=== PATIENT | male | born 1955 | race Caucasian/White ===

== ENCOUNTER 2017-02-07 18:46 | Emergency (ER) | payer OTHER, BC ==
[~2017-02-07] VITALS: Ht 170.2 cm; Wt 104.5 kg
[~2017-02-07 18:46] MED LIST: ASCA500 PO; ASPI81TA21 PO; LISI10TA PO; MULTTAB58 PO; PRLSR20 PO
[2017-02-07 18:49] VITALS: TEMP 36.7; Ht 170.2 cm; Wt 104.5 kg
--- NOTE | 2017-02-07 19:39 | DIAGNOSTIC IMAGING REPORT ---
ULTRASOUND RIGHT VENOUS DOPP LOWER EXT UNILAT CLINICAL HISTORY: Right leg pain COMPARISON STUDY: No previous studies for comparison. FINDINGS: Real-time and color flow Doppler imaging were performed. Flow was seen within the femoral, popliteal and calf veins with no intraluminal thrombus demonstrated. The saphenous vein is patent. No soft tissue hematoma was visualized at the point of maximal tenderness. IMPRESSION: No evidence of right lower extremity DVT Electronically signed by: Castro Colunga M.D. 02/07/2017 7:38 PM Dictated Date/Time: 02/07/2017 7:37 PM
--- NOTE | 2017-02-07 19:45 | DIAGNOSTIC IMAGING REPORT ---
ULTRASOUND OF THE RIGHT THIGH CLINICAL HISTORY: Right leg pain. Possible hematoma. COMPARISON STUDY: No previous studies for comparison. FINDINGS: Ultrasonographic evaluation of the posterior distal thigh was performed. No hematoma is visualized. IMPRESSION: No ultrasonographic evidence of an intramuscular hematoma. Electronically signed by: Castro Colunga M.D. 02/07/2017 7:43 PM Dictated Date/Time: 02/07/2017 7:43 PM
[2017-02-07 19:59] VITALS: BP 179/100; PULSE 61; O2SAT 98
--- NOTE | 2017-02-07 20:16 | EMERGENCY ROOM VISIT NOTE ---
History First contact with patient: 18:57 Chief Complaint: LEG PAIN,LEG INJURY Stated Complaint: TWISTED R LEG,PAIN,CANT WALK History of Present Illness The patient is a 61 year old male who presents to the Emergency Room with complaints of persistent right posterior leg pain after suffering a work- related injury 2 weeks ago while getting out of his truck. The patient is currently under the management of [facility], and saw them again yesterday with these complaints. He reports that they got x-rays of the knee and lower leg that were normal. He was encouraged to limit weightbearing until symptoms improve. The patient reports that the pain in his leg has been intermittent. He now reports that the pain today is severe, and seems to be focused in the back of his leg, knee and thigh region. He has not noticed any back pain, paresthesias or numbness of the right lower extremity. He has not noticed any swelling of the knee or leg. He rates his discomfort a 10 out of 10. Review of Systems 10 system review was performed and was negative except for pertinent positives and negatives as indicated in history of present illness Past Medical/Surgical History Medical Problems: (1) Diverticulosis Colon (W/O Ment Of Hemorrhage) (2) Esophageal Reflux (3) Hypertension Nos (4) Impetigo Surgical Problems: (1) History of appendectomy Family History FH: cancer FH: diabetes mellitus FH: heart disease FH: hypertension Social History Smoking Status: Never Smoker Alcohol Use: none Marital Status: Occupation Status: employed Current/Historical Medications Scheduled Ascorbic Acid (Vitamin C), 1,000 MG PO DAILY Aspirin Enteric Coated (Ecotrin Or Generic), 81 MG PO DAILY Lisinopril (Prinivil), 10 MG PO DAILY Multiple Vitamin (Multivitamin), 1 TAB PO DAILY Omeprazole (Prilosec), 20 MG PO DAILY Physical Exam Vital Signs Date Time Temp Pulse Resp B/P (MAP) Pulse Ox O2 Delivery O2 Flow Rate FiO2 02/07/17 19:59 61 16 179/100 98 02/07/17 18:49 36.7 92 18 99 Room Air Physical Exam CONSTITUTIONAL: Healthy and well nourished. Alert and oriented X 3 with positive affect. Patient does not appear in any significant distress on exam. HEENT: Normocephalic, atraumatic. Pupils equal, round and reactive. NECK: Full active range of motion without discomfort. RESPIRATORY: Clear to auscultation bilaterally with no wheezing, crackles, rhonchi or stridor. CARDIOVASCULAR: Regular rate and rhythm with no murmurs, rubs or gallops. MUSCULOSKELETAL: Examination of the right lower extremity does not show any obvious edema or ecchymosis. He is tender through the upper gastrocs anemias, hamstrings and distal biceps region. No obvious popliteal masses. He has no tenderness to palpation through the medial or lateral joint line. Flexion and extension does not cause any significant discomfort. Ligamentous exam is normal. Pedal pulses are intact. INTEGUMENTARY: No rash or other significant dermatologic conditions noted. NEUROLOGIC: No focal neurologic deficits noted. Right lower extremity is sensory intact. Medical Decision & Procedures ER Provider Diagnostic Interpretation: Venous ultrasound and nonvascular ultrasound of the right lower extremity is negative for deep vein thrombosis or other hematoma formation. Radiologist reports were reviewed. ED Course Patient history and physical exam were performed. Nurse's notes were reviewed. Vital signs were reviewed, with initial vital signs not including a blood pressure. The patient refused any analgesics. Venous and nonvascular ultrasound of the right lower extremity was negative for deep vein thrombosis or hematoma formation. A knee immobilizer and crutches were dispensed. The patient was encouraged to alternate ice and heat to the back of the leg. Ibuprofen and Tylenol as needed for pain. The patient refused any prescription analgesics. He was instructed to follow-up with [facility] for further management of his work-related injury. He is welcome to return to the emergency department as needed for any other concerning symptoms. The patient was happy with plan of care, voiced understanding of all discharge instructions , and rated his pain a 4 out of 10 at the conclusion of my exam. It is noted that the patient's blood pressure was elevated at 179/100 prior to discharge. He was instructed to follow-up with his PCP for blood pressure recheck. Medical Decision Medication Reconcilliation Current Medication List: was personally reviewed by me Blood Pressure Screening Patient's blood pressure: Elevated blood pressure Blood pressure disposition: Referred to PCP Impression Primary Impression: Posterior right knee pain Additional Impressions: Elevated blood pressure reading Work related injury Departure Information Referrals Mercy Delong M.D. (MEDICAL) (PCP) Patient Instructions My [facility] Problem Qualifiers
== END 2017-02-07 20:05 | disposition home or self-care (01) ==
LOC: C.EDB 18:47 → C.EDD 20:05
DX: M25.561 Pain in right knee (principal); V87.8XXA Person injured in other specified noncollision transport accidents involving motor vehicle (traffic), initial encounter; Y99.0 Civilian activity done for income or pay; I10 Essential (primary) hypertension; K57.30 Diverticulosis of large intestine without perforation or abscess without bleeding; K21.9 Gastro-esophageal reflux disease without esophagitis; L01.00 Impetigo, unspecified; Z79.82 Long term (current) use of aspirin; Z83.3 Family history of diabetes mellitus; Z82.49 Family history of ischemic heart disease and other diseases of the circulatory system

== ENCOUNTER 2017-07-26 23:21 | Emergency (ER) | payer BC, OTHER ==
[~2017-07-26] VITALS: Ht 170.2 cm; Wt 111.6 kg
[2017-07-26 23:29] VITALS: Ht 170.2 cm; Wt 111.6 kg
[2017-07-26] MEDS ORDERED: ONDANSETRON INJ 2 MG/ML 2 ML VIAL IV STA (23:32)
[2017-07-26] MEDS ORDERED: MoRPHine SULFATE 4 MG/ML 1 ML CARP\\VIAL IV STA (23:32)
[2017-07-26 23:45] VITALS: O2SAT 98
[2017-07-26 23:58] LABS: BASO % 0.3 %; BASO ABS # 0.04 K/uL (0-0.2); EOS ABS # 0.13 K/uL (0-0.5); HEMATOCRIT 48.8 % (42-52); HEMOGLOBIN 17.2 g/dL (14.0-18.0); IG# 0.05 K/uL (0.00-0.02); LYMPH % 17.7 %; LYMPH ABS # 2.25 K/uL (1.2-3.4); MEAN CORPUSCULAR HEMOGLOBIN 31.7 pg (25-34); MEAN CORPUSCULAR HGB CONC 35.2 g/dl (32-36); MEAN PLATELET VOLUME 11.7 fL (7.4-10.4); MONO % 9.5 %; NEUT % 71.1 %; NEUT ABS # 9.02 K/uL (1.4-6.5); PLATELET COUNT 133 K/uL (130-400); RED CELL DISTRIBUTION WIDTH SD 45.6 fL (36.4-46.3); WHITE BLOOD COUNT 12.69 K/uL (4.8-10.8)
[2017-07-27] MEDS ORDERED: KETOROLAC TROMETHAMINE 30 MG/ML VIAL IV STA (00:08)
[2017-07-27 00:20] LABS: ALBUMIN 3.6 gm/dl (3.4-5.0); CALCIUM 8.6 mg/dl (8.5-10.1); CREATININE 1.32 mg/dl (0.60-1.40); POTASSIUM 3.7 mmol/L (3.5-5.1)
[2017-07-27 00:23] LABS: TOTAL PROTEIN 7.1 gm/dl (6.4-8.2)
[2017-07-27] MEDS ORDERED: LISI-725 PO (01:19)
[2017-07-27] MEDS ORDERED: MoRPHine SULFATE 4 MG/ML 1 ML CARP\\VIAL IV STA (01:28)
[2017-07-27] MEDS ORDERED: ONDANSETRON HOME PACK 4MG OD TAB PO ONE (01:45)
[2017-07-27] MEDS ORDERED: OXYCODONE IR HOME PACK PO ONE (01:45)
--- NOTE | 2017-07-27 02:45 | EMERGENCY ROOM VISIT NOTE ---
History First contact with patient: 23:31 Chief Complaint: ABDOMINAL PAIN Stated Complaint: SEVERE ABDOMINAL PAIN Nursing Triage Summary: Pt complains of left side abdominal pain. +nausea and vomiting History of Present Illness The patient is a 62 year old male who presents to the Emergency Room with complaints of severe sudden onset of left side lower quadrant pain for the past 2 hours. Patient was lying in bed when the pain came on. Pain 8 out of 10. Nothing makes it better or worse. It does not radiate. Patient also complains of nausea and vomiting. Patient denies chest pain, dyspnea, back pain, flank pain, testicular pain, penile pain, fever, chills. No history kidney stones. No injury to the area. Review of Systems See HPI for pertinent positives & negatives. A total of 10 systems reviewed and were otherwise negative. Past Medical/Surgical History Medical Problems: (1) Diverticulosis Colon (W/O Ment Of Hemorrhage) (2) Esophageal Reflux (3) Hypertension Nos (4) Impetigo Surgical Problems: (1) History of appendectomy Family History FH: cancer FH: diabetes mellitus FH: heart disease FH: hypertension Social History Smoking Status: Never Smoker Alcohol Use: none Drug Use: none Marital Status: Housing Status: lives with family Occupation Status: employed Current/Historical Medications Scheduled Aspirin Enteric Coated (Ecotrin Or Generic), 81 MG PO DAILY Lisinopril (Zestril), 20 MG PO DAILY Omeprazole (Prilosec), 20 MG PO DAILY Physical Exam Vital Signs Date Time Temp Pulse Resp B/P (MAP) Pulse Ox O2 Delivery O2 Flow Rate FiO2 07/27/17 01:35 63 16 163/101 97 Room Air 07/27/17 00:16 61 16 150/90 96 07/26/17 23:45 98 Room Air 07/26/17 23:29 62 24 163/104 98 Room Air Physical Exam VITALS: Vitals are noted on the nurse's note and reviewed by myself. Vital signs hypertensive. GENERAL: Pleasant male who appears in pain, in no acute distress, nondiaphoretic , well-developed well-nourished. SKIN: The skin was without rashes, erythema, edema, or bruising. There is no tenting of the skin. Capillary reflex less than 2 seconds. HEAD: Normocephalic atraumatic. EARS: External auditory canals clear, tympanic membranes pearly hicks without erythema or effusion bilaterally. EYES: Pupils equal round and reactive to light and accommodation. Conjunctivae without injection, sclerae without icterus. Extraocular movements intact. NOSE: Patent, turbinates without inflammation or discharge. MOUTH: Mucous membranes moist. Pharynx without erythema or exudate. Uvula midline. Airway patent. Tongue does not deviate. NECK: Supple without nuchal rigidity. No lymphadenopathy. No thyromegaly. Cervical spine is nontender. No JVD. HEART: Regular rate and rhythm LUNGS: Clear to auscultation bilaterally without wheezes, rales or rhonchi. No dullness to percussion. No retractions or accessory muscle use. ABDOMEN: Positive bowel sounds x 4. Normal tympanic percussion. Soft, nontender, without masses or organomegaly. Trujillo sign negative. No guarding or rebound tenderness. No CVA tenderness MUSCULOSKELETAL: No muscle atrophy, erythema, or edema noted. NEURO: Patient was alert and oriented to person place and time. Normal sensation to light and sharp touch. No focal neurological deficits. Medical Decision & Procedures Laboratory Results 07/26/17 23:40 Red Blood Count 5.42, Mean Corpuscular Volume 90.0, Mean Corpuscular Hemoglobin 31.7, Mean Corpuscular Hemoglobin Concent 35.2, Mean Platelet Volume 11.7, Neutrophils (%) (Auto) 71.1, Lymphocytes (%) (Auto) 17.7, Monocytes (%) (Auto) 9.5, Eosinophils (%) (Auto) 1.0, Basophils (%) (Auto) 0.3, Neutrophils # (Auto) 9.02, Lymphocytes # (Auto) 2.25, Monocytes # (Auto) 1.20, Eosinophils # (Auto) 0.13, Basophils # (Auto) 0.04 07/26/17 23:40 Test 07/26/17 23:40 07/27/17 00:44 White Blood Count 12.69 K/uL (4.8-10.8) Red Blood Count 5.42 M/uL (4.7-6.1) Hemoglobin 17.2 g/dL (14.0-18.0) Hematocrit 48.8 % (42-52) Mean Corpuscular Volume 90.0 fL (80-100) Mean Corpuscular Hemoglobin 31.7 pg (25-34) Mean Corpuscular Hemoglobin Concent 35.2 g/dl (32-36) Platelet Count 133 K/uL (130-400) Mean Platelet Volume 11.7 fL (7.4-10.4) Neutrophils (%) (Auto) 71.1 % Lymphocytes (%) (Auto) 17.7 % Monocytes (%) (Auto) 9.5 % Eosinophils (%) (Auto) 1.0 % Basophils (%) (Auto) 0.3 % Neutrophils # (Auto) 9.02 K/uL (1.4-6.5) Lymphocytes # (Auto) 2.25 K/uL (1.2-3.4) Monocytes # (Auto) 1.20 K/uL (0.11-0.59) Eosinophils # (Auto) 0.13 K/uL (0-0.5) Basophils # (Auto) 0.04 K/uL (0-0.2) RDW Standard Deviation 45.6 fL (36.4-46.3) RDW Coefficient of Variation 14.0 % (11.5-14.5) Immature Granulocyte % (Auto) 0.4 % Immature Granulocyte # (Auto) 0.05 K/uL (0.00-0.02) Anion Gap 10.0 mmol/L (3-11) Est Creatinine Clear Calc Drug Dose 69.2 ml/min Estimated GFR () 66.5 Estimated GFR (Non- 57.4 BUN/Creatinine Ratio 15.8 (10-20) Calcium Level 8.6 mg/dl (8.5-10.1) Total Bilirubin 0.7 mg/dl (0.2-1) Direct Bilirubin 0.2 mg/dl (0-0.2) Aspartate Amino Transf (AST/SGOT) 25 U/L (15-37) Alanine Aminotransferase (ALT/SGPT) 33 U/L (12-78) Alkaline Phosphatase 71 U/L (45-117) Total Protein 7.1 gm/dl (6.4-8.2) Albumin 3.6 gm/dl (3.4-5.0) Lipase 178 U/L (73-393) Urine Color DK YELLOW Urine Appearance CLEAR (CLEAR) Urine pH 5.0 (4.5-7.5) Urine Specific Hancock 1.026 (1.000-1.030) Urine Protein NEG (NEG) Urine Glucose (UA) NEG (NEG) Urine Ketones TRACE (NEG) Urine Occult Blood 3+ (NEG) Urine Nitrite NEG (NEG) Urine Bilirubin NEG (NEG) Urine Urobilinogen NEG (NEG) Urine Leukocyte Esterase NEG (NEG) Urine WBC (Auto) 1-5 /hpf (0-5) Urine RBC (Auto) >30 /hpf (0-4) Urine Hyaline Casts (Auto) 1-5 /lpf (0-5) Urine Epithelial Cells (Auto) 0-5 /lpf (0-5) Urine Bacteria (Auto) NEG (NEG) Medications Administered Medications (Trade) Dose Ordered Sig/Manuel Route Start Time Stop Time Status Last Admin Dose Admin Morphine Sulfate (MoRPHine SULFATE INJ) 4 mg NOW STAT IV 07/26/17 23:32 07/26/17 23:35 DC 07/26/17 23:47 4 MG Ondansetron HCl (Zofran Inj) 4 mg NOW STAT IV 07/26/17 23:32 07/26/17 23:35 DC 07/26/17 23:46 4 MG Ketorolac Tromethamine (Toradol Inj) 30 mg NOW STAT IV 07/27/17 00:08 07/27/17 00:10 DC 07/27/17 00:16 30 MG Morphine Sulfate (MoRPHine SULFATE INJ) 4 mg NOW STAT IV 07/27/17 01:28 07/27/17 01:29 DC 07/27/17 01:38 4 MG ED Course Prior records/ancillary studies reviewed. Triage Nursing notes reviewed. The patient's history was concerning for LLQ pain. Differential diagnosis: Etiologies such as renal colic, appendicitis, diverticulitis, mesenteric ischemia, aortic pathology, infections, inflammatory bowel disease, PUD, biliary pathology, UTI, as well as others were entertained. Physical examination findings: As above. ER treatment provided: Morphine, Zofran, Toradol On reassessment the patient felt better. Diagnostic interpretation by me: The labs revealed hyperglycemia without DKA. Urinalysis revealed hematuria. There was no sign of UTI. Imaging studies: CT of the abdomen and pelvis as above. CT ABDOMEN & PELVIS Without Contrast: 4 mm stone left proximal ureter with resulting mild left hydronephrosis. Left renal cysts, measuring up to 2.2 cm and this largest cyst is a small associated calcification.. Appendix not identified, but no pericecal inflammatory changes to suggest acute appendicitis. Some mildly dilated small bowel containing ingested material. No definite evidence of bowel obstruction. Evaluation is limited by lack of oral contrast. No free air or free fluid. Unopacified solid organs otherwise unremarkable. Bilateral L3 and L5 pars defects. Grade 1 anterolisthesis of L3 on L4. Multilevel degenerative changes of the spine. Radiologist: Liam Terrazas MD It appears that the patient has isolated renal colic from a left sided stone. Patient's pain was under control. He was advised to take medications as directed, strain his urine and follow-up with urology in a few days or here in the ER sooner for severe pain, fevers, vomiting, worsening signs or symptoms or as needed. He had no signs of urine infection. His pain was managed. By the evaluation outlined above emergent etiologies such as appendicitis, diverticulitis, mesenteric ischemia, aortic pathology, infections, inflammatory bowel disease, PUD, biliary pathology, UTI, as well as others were deemed relatively unlikely. The pt informed about the findings as listed above. All questions were answered and pleased with the treatment. Return instructions were outlined and the patient was discharged in stable condition. Outpatient prescription management: Oxy IR 5mg 1-2 po Q4 hrs prn Zofran Referral: The pt was referred to [facility] for follow up care regarding their stone. or The patient was referred back to their primary care physician for follow-up in 2 to 3 days for a recheck of the current condition. Case reviewed with my attending Medical Decision as above Blood Pressure Screening Patient's blood pressure: Elevated blood pressure Blood pressure disposition: Elevated BP felt to be situational Impression Primary Impression: Renal colic on left side Departure Information Dispostion Home / Self-Care Condition GOOD Referrals Mercy Delong M.D. (MEDICAL) (PCP) Patient Instructions My [facility] Additional Instructions DO NOT drive, drink alcohol, operate machinery, or perform dangerous activities today. You were given medications in the ER that can affect your ability to safely function or operate a vehicle. Oxycodone Immediate Release (OxyIR) 5mg: Take 1-2 pills every four hours for pain. Avoid alcohol, operating machinery or dangerous equipment, working on ladders or roofs, DRIVING, or situations where being under the influence may be dangerous. It is recommended to use an [id number] stool softener such as Colace, 100mg twice daily while taking this medication to avoid constipation. Zofran 4 mg: Take one every six hours as needed for nausea. Avoid alcohol, operating machinery or dangerous equipment, working on ladders or roofs, DRIVING , or situations where being under the influence may be dangerous. Ibuprofen(Motrin, Advil) may be used for fever or pain. Use 600mg every six hours as needed. Take with food. Avoid using more than 2400mg in a 24 hour period. Do not use 2400mg per day for more than three consecutive days without physician direction. Prolonged inappropriate use can lead to stomach upset or ulcers. This medication can be taken if you need to drive, work, or perform activities which may be dangerous when taking narcotic pain medication. (AND/OR) Acetaminophen(Tylenol) may be used for fever or pain. Use 1000mg every six hours as needed. Avoid using more than 3000mg in a 24 hour period. This medication can be taken if you need to drive, work, or perform activities which may be dangerous when taking narcotic pain medication. Strain your urine and collect all the stones or debris for the urologists. Rest and avoid strenuous activity until your stone passes and symptoms resolve. Drink plenty of fluids. Continue current medications. Return to the ER for worsening abdominal or back pain, vomiting, fevers, passing out, or as needed. Follow up with urology in 2-3 days, call for an appointment.
[2017-07-27] MEDS ORDERED: OXYC1TAB3 PO (02:47)
[2017-07-27] MEDS ORDERED: ONDA4TAB10 SL (02:47)
[2017-07-27] MEDS ORDERED: HYDROmorphone INJ 1 MG/ML SYR IV STA (03:00)
[2017-07-27 03:21] VITALS: BP 159/97; PULSE 71; O2SAT 96
--- NOTE | 2017-07-27 06:48 | DIAGNOSTIC IMAGING REPORT ---
CT OF THE ABDOMEN AND PELVIS WITHOUT CONTRAST, STONE PROTOCOL CLINICAL HISTORY: Left sided pain. COMPARISON STUDY: None. TECHNIQUE: Helical axial images of the abdomen and pelvis were obtained without IV or oral contrast according to renal stone protocol. A dose lowering technique was utilized adhering to the principles of ALARA. FINDINGS: A 4 mm proximal left ureteral calculus results in mild left hydronephrosis. Note is made of a 2 mm calculus within the upper pole of the right kidney. A few water attenuation left renal lesions measure up to 2.2 cm. These are suboptimally assessed on this unenhanced exam but likely reflect cysts. There is minimal peripheral calcification within the largest lesion. There is no evidence for a bowel obstruction. Fatty infiltration of the liver is noted. Unenhanced images of spleen, adrenal glands and pancreas are unremarkable. There is no evidence for a bowel obstruction. The prostate is mildly enlarged. There are bilateral pars defects at L3 and L5 with grade I anterolisthesis of L3 on L4. IMPRESSION: 1. 4 mm proximal left ureteral calculus which results in mild left hydronephrosis. 2. 2 mm right renal calculus. Electronically signed by: Curtis Bhatia M.D. 07/27/2017 6:47 AM Dictated Date/Time: 07/27/2017 6:42 AM
== END 2017-07-27 03:45 | disposition home or self-care (01) ==
LOC: C.EDB 23:22
DX: N23 Unspecified renal colic (principal); R11.2 Nausea with vomiting, unspecified; I10 Essential (primary) hypertension; K21.9 Gastro-esophageal reflux disease without esophagitis; Z79.82 Long term (current) use of aspirin; Z79.899 Other long term (current) drug therapy; Z87.19 Personal history of other diseases of the digestive system; Z82.49 Family history of ischemic heart disease and other diseases of the circulatory system; Z83.3 Family history of diabetes mellitus

== ENCOUNTER → 2017-07-28 | Outpatient (CLI) | payer BC ==
[~2017-07-28] MED LIST changes: -ASCA500 PO; +LISI-725 PO; -LISI10TA PO; -MULTTAB58 PO; +ONDA4TAB10 SL; +OXYC1TAB3 PO
--- NOTE | 2017-07-28 10:49 | DIAGNOSTIC IMAGING REPORT ---
KUB HISTORY: Follow-up study in a patient with left ureteral calculus N20.0 [id number] COMPARISON: CT 07/26/2017 FINDINGS: The bowel gas pattern is non-obstructive. There is no organomegaly. 4 mm calculus of the left ureter is noted at the level of L5 which has progressed caudally approximately 2 cm from prior study. Previously noted right-sided nephrolithiasis not identified. Renal shadows are partially obscured by bowel gas. Moderate stool volume throughout the colon. Calcification of the right hemipelvis suggests a phlebolith. No pneumoperitoneum or pneumatosis. No fracture. IMPRESSION: 2 cm caudal progression of the 4 mm left ureteral calculus. Electronically signed by: Jairo Benson M.D. 07/28/2017 10:47 AM Dictated Date/Time: 07/28/2017 10:45 AM
--- NOTE | 2017-07-28 12:50 | DIAGNOSTIC IMAGING REPORT ---
CHEST 2 VIEWS ROUTINE HISTORY: Preop. KIDNEY STONES COMPARISON: Chest 08/01/2015. FINDINGS: No pneumothorax. No pleural effusions. The heart is mildly enlarged. Low lung volumes. Mild diffuse interstitial thickening, unchanged. No new focal lung consolidations. No evidence for pulmonary edema. IMPRESSION: 1. Low lung volumes with mild diffuse interstitial thickening, unchanged. Therefore, this favors a chronic interstitial process. 2. Stable mild cardiomegaly. Electronically signed by: Isael Banks M.D. 07/28/2017 12:49 PM Dictated Date/Time: 07/28/2017 12:47 PM
[2017-07-28 13:21] LABS: HEMATOCRIT 47.5 % (42-52); HEMOGLOBIN 16.6 g/dL (14.0-18.0); MEAN CELL VOLUME 90.5 fL (80-100); MEAN CORPUSCULAR HEMOGLOBIN 31.6 pg (25-34); MEAN CORPUSCULAR HGB CONC 34.9 g/dl (32-36); MEAN PLATELET VOLUME 12.2 fL (7.4-10.4); PLATELET COUNT 128 K/uL (130-400); RED CELL DISTRIBUTION WIDTH CV 13.7 % (11.5-14.5); WHITE BLOOD COUNT 11.51 K/uL (4.8-10.8)
[2017-07-28 13:22] LABS: BASO % 0.3 %; BASO ABS # 0.03 K/uL (0-0.2); EOS ABS # 0.12 K/uL (0-0.5); IG# 0.02 K/uL (0.00-0.02); LYMPH % 12.7 %; LYMPH ABS # 1.46 K/uL (1.2-3.4); MONO % 12.2 %; NEUT % 73.6 %; NEUT ABS # 8.48 K/uL (1.4-6.5)
[2017-07-28 13:35] LABS: BLOOD UREA NITROGEN 25 mg/dl (7-18); CARBON DIOXIDE 24 mmol/L (21-32); CREATININE 2.12 mg/dl (0.60-1.40); SODIUM 135 mmol/L (136-145)
== END | disposition home or self-care (01) ==
LOC: C.RAD 10:23
PROVIDERS: ATTEND Urology
DX: N20.1 Calculus of ureter (principal); N40.1 Benign prostatic hyperplasia with lower urinary tract symptoms

== ENCOUNTER → 2017-08-07 | Day surgery (SDC) | payer BC ==
[2017-07-31 15:16] VITALS: Ht 171.5 cm; Wt 106.8 kg
--- NOTE | 2017-08-06 15:49 | DIAGNOSTIC IMAGING REPORT ---
KUB HISTORY: Nephrolithiasis. COMPARISON: KUB 07/28/2017. FINDINGS: The bowel gas pattern is unremarkable. There are no dilated loops of small bowel to suggest an obstruction. The renal shadows are mostly of overlying bowel gas. No definite renal calculi identified. There is a new 4 mm calcification overlying the right side of the bladder. The adjacent 3 mm calcification within the right deep pelvis remains stable and is consistent with a phlebolith. No ureteral calculi identified. No pneumoperitoneum or pneumatosis. IMPRESSION: 1. No renal or ureteral calculi identified. 2. A new 4 mm calcification overlying the right side of the bladder which likely represents the passed left ureteral stone. Electronically signed by: Isael Banks M.D. 08/06/2017 3:48 PM Dictated Date/Time: 08/06/2017 3:45 PM
[~2017-08-07] VITALS: Ht 171.5 cm; Wt 106.8 kg
[~2017-08-07] MED LIST changes: +ATROPINE SULFATE 0.1 MG/ML 5ML SYR IV PRN; +CIPROFLOXACIN 400MG / D5W IV SCH; +EpHEDrine SULFATE INJ 50 MG/ML AMP IV PRN; +FENTANYL CITRATE INJ 50 MCG/1 ML 2 ML VIAL IV PRN; +HYDROmorphone INJ 1 MG/ML SYR IV PRN; +LACTATED RINGER'S 1000ML 1,000 ML IV SCH; +ONDANSETRON INJ 2 MG/ML 2 ML VIAL IV PRN; +PROMETHAZINE HCL INJ 12.5 MG in SODIUM CHLORIDE 0.9% 50ML 50 ML IV PRN
[2017-08-07 07:35] VITALS: BP 138/88; PULSE 70; TEMP 36.5; O2SAT 97
--- NOTE | 2017-08-07 08:51 | History & Physical Bridge Note ---
H&P Re-Evaluation Bridge Note: I have examined the patient, reviewed the History & Physical and in the interval since the performance of the History & Physical I have noted the following changes of clinical significance: No changes noted
== END | disposition home or self-care (01) ==
LOC: X.SURG 07:27
PROVIDERS: ATTEND Urology
DX: N20.0 Calculus of kidney (principal); N40.1 Benign prostatic hyperplasia with lower urinary tract symptoms; N13.8 Other obstructive and reflux uropathy; Z53.9 Procedure and treatment not carried out, unspecified reason

== ENCOUNTER → 2017-08-19 | Outpatient (CLI) | payer BC ==
[~2017-08-19] MED LIST changes: -ATROPINE SULFATE 0.1 MG/ML 5ML SYR IV PRN; -CIPROFLOXACIN 400MG / D5W IV SCH; -EpHEDrine SULFATE INJ 50 MG/ML AMP IV PRN; -FENTANYL CITRATE INJ 50 MCG/1 ML 2 ML VIAL IV PRN; -HYDROmorphone INJ 1 MG/ML SYR IV PRN; -LACTATED RINGER'S 1000ML 1,000 ML IV SCH; -ONDANSETRON INJ 2 MG/ML 2 ML VIAL IV PRN; -PROMETHAZINE HCL INJ 12.5 MG in SODIUM CHLORIDE 0.9% 50ML 50 ML IV PRN
--- NOTE | 2017-08-19 14:52 | DIAGNOSTIC IMAGING REPORT ---
KUB CLINICAL HISTORY: Nephrolithiasis. COMPARISON STUDY: CT of the abdomen and pelvis July 26, 2017 and KUB August 06, 2017. FINDINGS: A right pelvic calcification represents a phlebolith. No renal or ureteral calculi are identified. The possible bladder calculus shown on KUB of August 06, 2017 is not visualized on this exam. A 5 mm density lateral to the left transverse process of L4 is likely artifactual. IMPRESSION: 1. No ureteral calculi identified. 2. The suspected bladder calculus shown on KUB of August 06, 2017 is no longer visualized. 3. 5 mm density lateral to the left transverse process of L4 is likely artifactual. Electronically signed by: Curtis Bhatia M.D. 08/19/2017 2:51 PM Dictated Date/Time: 08/19/2017 2:47 PM
== END | disposition home or self-care (01) ==
LOC: C.RAD 14:18
PROVIDERS: ATTEND Urology
DX: N20.0 Calculus of kidney (principal)

== ENCOUNTER → 2017-08-20 | Outpatient (CLI) | payer BC | END | disposition home or self-care (01) | LOC: C.LABSPEC 10:27 | PROVIDERS: ATTEND Urology | DX: N20.0 Calculus of kidney (principal) ==

== ENCOUNTER → 2017-10-07 | Outpatient (CLI) | payer BC | END | disposition home or self-care (01) | LOC: C.LAB1850 15:48 | PROVIDERS: ATTEND Urology | DX: R97.20 Elevated prostate specific antigen [PSA] (principal) ==

== ENCOUNTER 2018-02-14 15:40 | Emergency (ER) | payer BC ==
[~2018-02-14] VITALS: Ht 170.2 cm; Wt 109.1 kg
[~2018-02-14 15:40] MED LIST changes: +ASPI-319 PO; -ASPI81TA21 PO; -ONDA4TAB10 SL; -OXYC1TAB3 PO
[2018-02-14 15:49] VITALS: TEMP 36.7; Ht 170.2 cm; Wt 109.1 kg
--- NOTE | 2018-02-14 16:10 | DIAGNOSTIC IMAGING REPORT ---
R SHOULDER MIN 2 VIEWS ROUTINE CLINICAL HISTORY: Right shoulder pain following fall. COMPARISON: Right shoulder radiographs June 11, 2012. FINDINGS: Alignment of the right acromioclavicular and glenohumeral joints is anatomic. There is no acute fracture. A 1.5 cm calcific density adjacent to the greater tuberosity represents calcific tendinitis. Mild to moderate osteophytosis of the right acromioclavicular and glenohumeral joints is noted. IMPRESSION: 1. No acute fracture or dislocation of the right shoulder. 2. Calcific tendinitis of the right rotator cuff. 3. 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 Electronically signed by: Curtis Bhatia M.D. 02/14/2018 4:09 PM Dictated Date/Time: 02/14/2018 4:07 PM
[2018-02-14] MEDS ORDERED: OMEP20CA9 PO (16:41)
[2018-02-14] MEDS ORDERED: LISI-726 PO (16:41)
[2018-02-14 16:50] VITALS: BP 145/80; PULSE 76; O2SAT 98
--- NOTE | 2018-02-14 22:28 | EMERGENCY ROOM VISIT NOTE ---
History First contact with patient: 16:27 Chief Complaint: SHOULDER PAIN Stated Complaint: FELL RIGHT ARM PAIN History of Present Illness The patient is a 62 year old male who presents to the Emergency Room with complaints of right shoulder pain after falling backwards yesterday and attempting to catch himself with his right arm. The patient reports persistent shoulder pain that kept him awake last night. He denies any head injury, neck pain or back pain. The patient is right-hand dominant. The patient reports a history of right rotator cuff repair approximately 5 years ago that was also caused by a fall. The patient was treated by [facility]. He denies any paresthesias or numbness of the right upper extremity, and rates his pain a 7 out of 10 at its worst. Review of Systems 10 system review was performed and was negative except for pertinent positives and negatives as indicated in history of present illness Past Medical/Surgical History Medical Problems: (1) Diverticulosis Colon (W/O Ment Of Hemorrhage) (2) Esophageal Reflux (3) Hypertension Nos (4) Impetigo Surgical Problems: (1) History of appendectomy Family History FH: cancer FH: diabetes mellitus FH: heart disease FH: hypertension Social History Smoking Status: Former Smoker Alcohol Use: none Drug Use: none Marital Status: Housing Status: lives with family Occupation Status: employed Current/Historical Medications Scheduled Aspirin Enteric Coated (Ecotrin Or Generic), 81 MG PO QAM Lisinopril (Lisinopril), 20 MG PO QAM Omeprazole (Prilosec), 20 MG PO QAM Physical Exam Vital Signs Date Time Temp Pulse Resp B/P (MAP) Pulse Ox O2 Delivery O2 Flow Rate FiO2 02/14/18 16:50 76 20 145/80 98 02/14/18 15:49 36.7 72 18 150/91 97 Room Air Physical Exam CONSTITUTIONAL: Healthy and well nourished. Alert and oriented X 3 with positive affect. Patient does not appear in any acute distress. HEENT: Normocephalic, atraumatic. Pupils equal, round and reactive. NECK: Full active range of motion without discomfort. RESPIRATORY: Clear to auscultation bilaterally with no wheezing, crackles, rhonchi or stridor. The breathing does not cause any shoulder discomfort. CARDIOVASCULAR: Regular rate and rhythm with no murmurs, rubs or gallops. GASTROINTESTINAL: Bowel sounds present in all quadrants. Soft and nontender to palpation. MUSCULOSKELETAL: Examination of the right shoulder shows discomfort with range of motion. Positive drop arm test. Patient has no focal tenderness over the acromioclavicular joint or sternoclavicular joint. He has no obvious edema or ecchymosis over the biceps or elbow antecubitus. Patient has no focal tenderness through the triceps or olecranon region. Distal pulses are intact. INTEGUMENTARY: No rash or other significant dermatologic conditions noted. NEUROLOGIC: Right hand and fingers are sensory intact. Deltoid sensation is intact. Medical Decision & Procedures ER Provider Diagnostic Interpretation: My interpretation of right shoulder x-rays does not show any dislocation. No superior migration of the humeral head. Radiologist report is as follows: R SHOULDER MIN 2 VIEWS ROUTINE CLINICAL HISTORY: Right shoulder pain following fall. COMPARISON: Right shoulder radiographs June 11, 2012. FINDINGS: Alignment of the right acromioclavicular and glenohumeral joints is anatomic. There is no acute fracture. A 1.5 cm calcific density adjacent to the greater tuberosity represents calcific tendinitis. Mild to moderate osteophytosis of the right acromioclavicular and glenohumeral joints is noted. IMPRESSION: 1. No acute fracture or dislocation of the right shoulder. 2. Calcific tendinitis of the right rotator cuff. 3. 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 ED Course Patient history and physical exam were performed. Nurse's notes were reviewed. Vital signs were reviewed, showing a blood pressure 150/91. The patient refused any analgesics while in the emergency department. X-rays of the right shoulder does not show any acute findings. The patient was encouraged to follow -up with [facility] for further reevaluation. He was instructed to avoid any heavy labor. An arm sling was applied. The patient was encouraged to intermittently apply ice to the shoulder. Ibuprofen and Tylenol as needed for pain. The patient was happy with plan of care, voiced understanding of all discharge instructions, and denied any significant discomfort at the conclusion of my exam. Medical Decision I am concerned for another rotator cuff injury. X-rays do not show any obvious fractures, dislocation or separation. I also do not suspect biceps tendon rupture. Medication Reconcilliation Current Medication List: was personally reviewed by me Blood Pressure Screening Patient's blood pressure: Normal blood pressure Impression Primary Impression: Right shoulder injury Additional Impression: Fall Departure Information Referrals Mercy Delong M.D. (MEDICAL) (PCP) Patient Instructions My [facility] Problem Qualifiers Primary Impression: Right shoulder injury Encounter type: initial encounter Qualified Codes: S49.91XA - Unspecified injury of right shoulder and upper arm, initial encounter Additional Impression: Fall Encounter type: initial encounter Qualified Codes: W19.XXXA - Unspecified fall, initial encounter
== END 2018-02-14 16:50 | disposition home or self-care (01) ==
LOC: C.EDB 15:41 → C.EDD 16:50
DX: S49.91XA Unspecified injury of right shoulder and upper arm, initial encounter (principal); W19.XXXA Unspecified fall, initial encounter; K21.9 Gastro-esophageal reflux disease without esophagitis; I10 Essential (primary) hypertension; Z90.49 Acquired absence of other specified parts of digestive tract; Z80.9 Family history of malignant neoplasm, unspecified; Z83.3 Family history of diabetes mellitus; Z82.49 Family history of ischemic heart disease and other diseases of the circulatory system; Z87.891 Personal history of nicotine dependence; Z79.82 Long term (current) use of aspirin; Z79.899 Other long term (current) drug therapy